=== PATIENT | female | born 1985 | race Caucasian/White ===

== ENCOUNTER 2018-04-17 18:11 | Emergency (ER) | payer OTHER ==
[2018-04-17] MEDS: IBUPROFEN 600 MG TAB PO (21:38)
== END 2018-04-18 00:10 | disposition home or self-care (01) ==
LOC: FTE 04-18 00:10
DX: S92.355A Nondisplaced fracture of fifth metatarsal bone, left foot, initial encounter for closed fracture (principal); W06.XXXA Fall from bed, initial encounter; Y92.9 Unspecified place or not applicable
CPT/HCPCS: 29515; 73590; 73610; 81025; 99283-25